=== PATIENT | female | born 1965 | race Caucasian/White ===

== ENCOUNTER 2017-04-22 15:57 | Inpatient (IN) | payer OTHER ==
[2017-04-22] VITALS (7 sets, daily range): BP systolic 121–158; BP diastolic 70–90; PULSE 65–83; RESP 16–20; TEMP 97.5–98.1; O2SAT 97–100
[~2017-04-22] VITALS: Ht 162.6 cm; Wt 82.0 kg
[~2017-04-22 15:57] MED LIST: ALBU1AER INH; BENZ100 PO; ERYT1O LEFT EYE; PRED20 PO; SYMB80AE INH; ZITH250T PO
[2017-04-22 16:30] LABS: BASOPHIL % 0.4 % (0.0-2.0); EOSINOPHIL # 0.3 TH/MM3 (0-0.4); EOSINOPHIL % 5.2 % (0.0-4.0); HEMATOCRIT 34.2 % (35.0-46.0); HEMO FLAGS DIFF FINAL; LYMPH % 23.5 % (9.0-44.0); LYMPHOCYTE # 1.4 TH/MM3 (1.0-4.8); MEAN CELL VOLUME 78.8 FL (80.0-100.0); MEAN CORPUSCULAR HEMOGLOBIN 26.6 PG (27.0-34.0); MEAN CORPUSCULAR HGB CONC 33.7 % (32.0-36.0); MONO % 5.9 % (0.0-8.0); PLATELET COUNT 205 TH/MM3 (150-450); RED BLOOD COUNT 4.34 MIL/MM3 (4.00-5.30); RED CELL DISTRIBUTION WIDTH 14.4 % (11.6-17.2); WHITE BLOOD COUNT 6.1 TH/MM3 (4.0-11.0)
[2017-04-22] MEDS ORDERED: MECL-62 PO (16:31)
[2017-04-22] MEDS ORDERED: PROM25TA10 PO (16:31)
[2017-04-22] MEDS ORDERED: ALBUAER3 INH (16:31)
[2017-04-22] MEDS ORDERED: LORA-392 PO (16:31)
[2017-04-22] MEDS ORDERED: LEXA20TA PO (16:31)
[2017-04-22] MEDS: SODIUM CHLOR 0.9% 1000 ML INJ 1,000 ML IV SCH (16:33)
[2017-04-22 16:40] LABS: CHLORIDE 105 MEQ/L (98-107); POTASSIUM 3.1 MEQ/L (3.5-5.1); SODIUM (NA) 141 MEQ/L (136-145)
[2017-04-22 16:44] LABS: ANION GAP 8 MEQ/L (5-15); BLOOD UREA NITROGEN 11 MG/DL (7-18)
[2017-04-22] MEDS ORDERED: LORazepam 2 MG/ML VIAL IV PUSH ONE (16:45)
[2017-04-22 16:46] LABS: APTT (PATIENT) 27.3 SEC (24.3-30.1); PROTHROMBIN TIME - PATIENT 10.7 SEC (9.8-11.6)
[2017-04-22 16:47] LABS: ALT (GPT) 19 U/L (10-53); AST (GOT) 13 U/L (15-37); GLOMERULAR FILTRATION RATE 85 ML/MIN (>89)
[2017-04-22 16:49] LABS: TOTAL BILIRUBIN ADULT 0.2 MG/DL (0.2-1.0)
[2017-04-22 16:50] LABS: ALKALINE PHOSPHATASE 104 U/L (45-117)
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
--- NOTE | 2017-04-22 16:54 | RADRPT ---
EXAM DATE/TIME: 04/22/2017 16:28 [facility] COMPARISON: No previous studies available for comparison. INDICATIONS : Left arm and facial numbness. Evaluate for cerebrovascular accident. RADIATION DOSE: 64.21 CTDIvol (mGy) MEDICAL HISTORY : Seizures. Hypertension. SURGICAL HISTORY : section. ENCOUNTER: Initial ACUITY: 1 day PAIN SCALE: 0/10 LOCATION: cranial TECHNIQUE: Multiple contiguous axial images were obtained of the head. Using automated exposure control and adj ustment of the mA and/or kV according to patient size, radiation dose was kept as low as reasonably a chievable to obtain optimal diagnostic quality images. DICOM format image data is available electro nically for review and comparison. FINDINGS: There is no evidence for intracranial hemorrhage, mass effect, mass lesions, edema, or extra-axial fl uid collections. The visualized bony structures appear intact. The ventricles are normal size for t he patient's age. There are no signs of acute infarction for technique. CONCLUSION: Unremarkable study. Vesta Parekh MD on April 22, 2017 at 16:51 Board Certified Radiologist. This report was verified electronically.
[2017-04-22] MEDS ORDERED: ASPIRIN 325 MG TAB PO ONE (17:30)
--- NOTE | 2017-04-22 17:38 | RADRPT ---
EXAM DATE/TIME: 04/22/2017 17:01 [facility] COMPARISON: CT BRAIN W/O CONTRAST, April 22, 2017, 16:28. INDICATIONS : Left sided weakness. MEDICAL HISTORY : None. SURGICAL HISTORY : section. ENCOUNTER: Initial ACUITY: 1 day PAIN SCORE: 0/10 LOCATION: cranial TECHNIQUE: Multiplanar, multisequence MRI of the brain was performed without contrast. FINDINGS: There is no evidence for intracranial hemorrhage, mass effect, mass lesions, edema, or extra-axial fl uid collections. The ventricles are normal size for the patient's age. There are no signs of acute infarction for technique. The diffusion portion is unremarkable. CONCLUSION: Unremarkable study. Vesta Parekh MD on April 22, 2017 at 17:33 Board Certified Radiologist. This report was verified electronically.
--- NOTE | 2017-04-22 17:41 | RADRPT ---
EXAM DATE/TIME: 04/22/2017 17:01 [facility] COMPARISON: No previous studies available for comparison. INDICATIONS : Left sided weakness. MEDICAL HISTORY : None. SURGICAL HISTORY : section. ENCOUNTER: Initial ACUITY: 1 day PAIN SCORE: 0/10 LOCATION: cranial Please note a normal MRA of the brain does not entirely exclude the possibility of a small aneurysm, nor the possibility of distal intracranial vessel disease. TECHNIQUE: 3D time of flight MRA was performed. Source images, multiplanar STS MIP, and 3D volume MIP reconstru ctions were reviewed. FINDINGS: There is excellent visualization of the major intracranial arteries out to the second-order branch ve ssels. There is no evidence for aneurysm, vessel truncation or stenosis, and no evidence for vascula r malformation. CONCLUSION: Normal examination. Daniel Pearson MD on April 22, 2017 at 17:38 Board Certified Radiologist. This report was verified electronically.
--- NOTE | 2017-04-22 17:42 | RADRPT ---
EXAM DATE/TIME: 04/22/2017 17:01 [facility] COMPARISON: No previous studies available for comparison. INDICATIONS : Left sided weakness. MEDICAL HISTORY : None. SURGICAL HISTORY : section. ENCOUNTER: Initial ACUITY: 1 day PAIN SCORE: 0/10 LOCATION: cranial TECHNIQUE: Multiplanar, multisequence MRI examination of the cervical spine was performed. FINDINGS: The marrow signal appears intact, and the spinal cord appears intact with technique. C2-C3: No appreciable compromise to the thecal sac, exiting nerve roots are seen. The neural forami na are patent bilaterally. No appreciable thecal sac stenosis is seen. C3-C4: No appreciable compromise to the thecal sac, exiting nerve roots are seen. The neural forami na are patent bilaterally. No appreciable thecal sac stenosis is seen. C4-C5: No appreciable compromise to the thecal sac, exiting nerve roots are seen. The neural forami na are patent bilaterally. No appreciable thecal sac stenosis is seen. C5-C6: Slight degenerative changes are seen within the disc space and facets. Small right-sided broad -based disc protrusion is present slightly impinging the exiting C6 anterior ramus. There is no theca l sac stenosis. C6-C7: No appreciable compromise to the thecal sac, exiting nerve roots are seen. The neural foramin a are patent bilaterally. No appreciable thecal sac stenosis is seen. C7-T1: No appreciable compromise to the thecal sac, exiting nerve roots are seen. The neural foramin a are patent bilaterally. No appreciable thecal sac stenosis is seen. CONCLUSION: Slight impingement on the right C6 anterior ramus due to broad-based disc protrusion with out any significant thecal sac stenosis. Vesta Parekh MD on April 22, 2017 at 17:37 Board Certified Radiologist. This report was verified electronically.
--- NOTE | 2017-04-22 17:55 | RADRPT ---
EXAM DATE/TIME: 04/22/2017 17:43 [facility] COMPARISON: CHEST SINGLE AP, June 26, 2016, 12:43. INDICATIONS : Shortness of breath. MEDICAL HISTORY : Asthma SURGICAL HISTORY : section. ENCOUNTER: Initial ACUITY: 1 day PAIN SCORE: 0/10 LOCATION: Bilateral chest FINDINGS: The lungs are clear without infiltrate, nodule, or mass. There is no appreciable pleural effusion fo r technique. Heart and mediastinum are unremarkable. CONCLUSION: No acute cardiopulmonary disease. Vesta Parekh MD on April 22, 2017 at 17:54 Board Certified Radiologist. This report was verified electronically.
[2017-04-22] MEDS ORDERED: GADODIAMIDE PF 287 MG/ML 20 ML VIAL (for RAD MRI) IV ONE (18:07)
[2017-04-22] MEDS ORDERED: POTASSIUM CHLORIDE 20 MEQ CONTROLLED RELEASE TAB PO ONE (18:30)
[2017-04-22 18:40] LABS: BLOOD, URINE NEG (NEG); GLUCOSE,URINE NEG (NEG); KETONE, URINE NEG (NEG); NITRITE,URINE NEG (NEG); PH, URINE 6.5 (5.0-8.5)
--- NOTE | 2017-04-22 18:41 | RADRPT ---
EXAM DATE/TIME: 04/22/2017 17:01 [facility] COMPARISON: No previous studies available for comparison. INDICATIONS : Left sided weakness. CONTRAST: 20 cc Omniscan (gadodiamide) IV MEDICAL HISTORY : None. SURGICAL HISTORY : section. ENCOUNTER: Initial ACUITY: 1 day PAIN SCORE: 0/10 LOCATION: cranial Percent stenosis is calculated using the diameter of the stenotic region over the diameter of the nor mal distal internal carotid artery. TECHNIQUE: Bolus infused MRA of the extracranial circulation was performed using a neurovascular coil. Post pro cessing was performed including rotating subvolume maximum intensity projections of each carotid chema ry, rotating full volume maximum intensity projections of both carotid arteries, sagittal and coronal sliding thin slab reformations of each carotid artery, and left oblique sliding thin slab reformatio n through the aortic arch to include the origin of the arch branch vessels. FINDINGS: AORTIC ARCH: There is a three vessel origin of the great vessels from the aorta. No evidence of ostial narrowing. RIGHT CAROTID: The common carotid artery is intact. The carotid bulb has a normal configuration without ulceration or narrowing. The internal carotid artery lumen is smooth without stenosis. The external carotid ar anton is intact. LEFT CAROTID: The common carotid artery is intact. The carotid bulb has a normal configuration without ulceration or narrowing. The internal carotid artery lumen is smooth without stenosis. The external carotid ar anton is intact. VERTEBRALS: The vertebral arteries have a symmetric diameter. No stenotic lesions are seen. CONCLUSION: Normal examination for a patient of this age. Enoch Gallagher MD on April 22, 2017 at 18:37 Board Certified Radiologist. This report was verified electronically.
[2017-04-22 18:43] LABS: URINE COLOR YELLOW (YELLW/STRAW)
[2017-04-22 18:45] LABS: RBC, URINE 0-3 /hpf (0-3); WBC, URINE 0-2 /hpf (0-5)
[2017-04-22 18:46] LABS: COMMENT (UR) CULT NOT INDICATED; CULTURE IF INDICATED CULT NOT INDICATED
[2017-04-22] MEDS ORDERED: SODIUM CHLORIDE 0.9% FLUSH 10 ML FLUSH IV FLUSH PRN (20:15)
[2017-04-22] MEDS ORDERED: NALOXONE HCL 0.4 MG/ML AMP IV PRN (20:15)
[2017-04-22] MEDS ORDERED: ONDANSETRON HCL 4 MG/2 ML VIAL IVP PRN (20:15)
[2017-04-22] MEDS: HEPARIN SODIUM - SQ 10,000 UNITS/ML VIAL SQ SCH (21:09)
[2017-04-22] MEDS: SODIUM CHLORIDE 0.9% FLUSH 10 ML FLUSH IV FLUSH SCH (21:09)
[2017-04-22] MEDS: D5-1/2 NS + KCL 20 MEQ INJ 1,000 ML IV SCH (21:10)
[2017-04-23 04:00] VITALS: BP 110/69; PULSE 63; RESP 20; TEMP 96.3; O2SAT 98
[2017-04-23] MEDS: D5-1/2 NS + KCL 20 MEQ INJ 1,000 ML IV SCH (06:10)
[2017-04-23] MEDS: SODIUM CHLOR 0.9% 1000 ML INJ 1,000 ML IV SCH (06:12)
[2017-04-23 07:46] LABS: POTASSIUM 3.8 MEQ/L (3.5-5.1)
[2017-04-23 07:48] LABS: AUTOMATED NEUTROPHIL # 2.2 TH/MM3 (1.8-7.7); BASOPHIL % 0.6 % (0.0-2.0); EOSINOPHIL # 0.3 TH/MM3 (0-0.4); EOSINOPHIL % 8.4 % (0.0-4.0); HEMATOCRIT 36.2 % (35.0-46.0); HEMO FLAGS DIFF FINAL; LYMPH % 28.7 % (9.0-44.0); LYMPHOCYTE # 1.2 TH/MM3 (1.0-4.8); MEAN CELL VOLUME 81.4 FL (80.0-100.0); MEAN CORPUSCULAR HEMOGLOBIN 27.2 PG (27.0-34.0); MEAN CORPUSCULAR HGB CONC 33.5 % (32.0-36.0); MONO % 6.3 % (0.0-8.0); PLATELET COUNT 177 TH/MM3 (150-450); RED BLOOD COUNT 4.45 MIL/MM3 (4.00-5.30); RED CELL DISTRIBUTION WIDTH 14.9 % (11.6-17.2)
[2017-04-23 07:49] LABS: BICARBONATE 28.3 MEQ/L (21.0-32.0)
[2017-04-23 08:00] VITALS: BP 144/90; PULSE 64; RESP 18; TEMP 97; O2SAT 99
[2017-04-23] MEDS: HEPARIN SODIUM - SQ 10,000 UNITS/ML VIAL SQ SCH (08:48)
[2017-04-23] MEDS: SODIUM CHLORIDE 0.9% FLUSH 10 ML FLUSH IV FLUSH SCH (08:50)
[2017-04-23] MEDS ORDERED: ALBUTEROL SULFATE 90 MCG/ACT HFA 8 GM INHALER INH PRN (10:30)
[2017-04-23] MEDS ORDERED: MECLIZINE HCL 25 MG TAB PO PRN (10:30)
[2017-04-23] MEDS ORDERED: LORazepam 0.5 MG TAB PO PRN (10:30)
[2017-04-23] MEDS ORDERED: PROMETHAZINE HCL 25 MG TAB PO PRN (10:30)
[2017-04-23] MEDS ORDERED: PANTOPRAZOLE SOD 40 MG DELAYED RELEASE TAB PO SCH (11:00)
[2017-04-23] MEDS ORDERED: ALBUTEROL SULFATE 90 MCG/ACT HFA 18 GM INHALER INH PRN (11:00)
[2017-04-23] MEDS ORDERED: ESCITALOPRAM OXALATE 20 MG TAB PO SCH (11:00)
--- NOTE | 2017-04-23 16:44 | EKG ---
Date Performed: 04/22/2017 Time Performed: 16:03:33 PTAGE: 52 years EKG: Sinus rhythm NORMAL ECG INTERPRETATION BASED ON A DEFAULT AGE OF 41 YEARS NO PREVIOUS TRACING DOCTOR: Jose Estrella Interpretating Date/Time 04/23/2017 16:43:48
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
== END 2017-04-23 14:40 | disposition home or self-care (01) | DRG 69 ==
LOC: PHED 15:57 → PHEDA 20:07 → PH3A 21:36
PROVIDERS: ADMIT Family Medicine; ATTEND Family Medicine
DX: G45.9 Transient cerebral ischemic attack, unspecified (principal); M50.223 Other cervical disc displacement at C6-C7 level; E87.6 Hypokalemia; J45.909 Unspecified asthma, uncomplicated; Z82.3 Family history of stroke; Z82.49 Family history of ischemic heart disease and other diseases of the circulatory system; M19.90 Unspecified osteoarthritis, unspecified site
CPT/HCPCS: 70450; 70544; 70548; 70551; 71010; 72141; 80048; 80053; 81001; 84443; 85025; 85610; 85730; 93005; A9579; J1644; J2060; J3480; J7030

== ENCOUNTER 2017-09-17 08:08 | Emergency (ER) | payer OTHER ==
[~2017-09-17] VITALS: Ht 160 cm; Wt 86.0 kg
[~2017-09-17 08:08] MED LIST changes: -ALBU1AER INH; +ALBUAER3 INH; -BENZ100 PO; -ERYT1O LEFT EYE; +LEXA20TA PO; +LORA-392 PO; +MECL-62 PO; -PRED20 PO; +PROM25TA10 PO; -SYMB80AE INH; -ZITH250T PO
[2017-09-17 08:13] VITALS: BP 133/74; PULSE 88; RESP 16; TEMP 98.8; O2SAT 96
[2017-09-17] MEDS ORDERED: SYMB80AE INH (08:23)
[2017-09-17] MEDS ORDERED: CLINDAMYCIN INJ 900 MG in SODIUM CHLORIDE 0.9% INJ 100 ML IV ONE (08:30)
[2017-09-17] MEDS ORDERED: CLIN150C14 PO (08:32)
--- NOTE | 2017-09-17 08:32 | PD ---
HPI Chief Complaint: Skin Problem Time Seen by Provider: 08:25 Travel History International Travel<30 days: No Contact w/Intl Traveler<30days: No Traveled to known affect area: No History of Present Illness HPI Patient presents for right cheek abscess. States she first noticed a small abscess yesterday and was attempting warm compresses. When she awoke this morning it was significantly more swollen and red. No airway compromise. PFSH Past Medical History Hx Anticoagulant Therapy: No Arthritis: Yes Asthma: Yes Blood Disorders: No Anxiety: Yes Depression: Yes Cancer: No (pre cancer on nose. 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) Neurologic: Yes (VERTIGO) Psychiatric: Yes Reproductive: No Respiratory: Yes (ASTHMA) Immunizations Current: Yes Radiation Therapy: No Seizures: Yes Thyroid Disease: Yes (clay's) ?: Not LMP: irregular-premenopausal Past Surgical History Section: Yes Social History Alcohol Use: No Tobacco Use: No Substance Use: No Allergies-Medications (Allergen,Severity, Reaction): Coded Allergies: No Known Allergies (Unverified Adverse Reaction, Unknown, 09/17/17) Reported Meds & Prescriptions Reported Meds & Active Scripts Active Clindamycin (Clindamycin HCl) 150 Mg Cap 300 Mg PO TID 10 Days Reported Symbicort Inh (Budesonide/Formoterol Fumarate) 80-4.5 Mcg/Act Aero Unknown Dose INH Q12HR Phenergan (Promethazine HCl) 25 Mg Tablet 25 Mg PO Q6H PRN Ativan (Lorazepam) 0.5 Mg Tab 1 Mg PO DAILY PRN Proair Hfa 8.5 GM Inh (Albuterol Sulfate) 90 Mcg/Act Aer 2 Puff INH Q6H PRN 108 mcg/actuation Meclizine (Meclizine HCl) 25 Mg Tab 25 Mg PO DIRECTED PRN Review of Systems General / Constitutional: No: Fever Eyes: No: Visual changes HENT: No: Headaches Cardiovascular: No: Chest Pain or Discomfort Respiratory: No: Shortness of Breath Gastrointestinal: No: Abdominal Pain Genitourinary: No: Dysuria Musculoskeletal: No: Pain Skin: Positive Other (right cheek abscess), No Rash Neurologic: No: Weakness Psychiatric: No: Depression Endocrine: No: Polydipsia Hematologic/Lymphatic: No: Easy Bruising Physical Exam Narrative GENERAL: Well-nourished, well-developed patient. SKIN: Focused skin assessment warm/dry. HEAD: Normocephalic. Examination of the right cheek reveals a palpable 3 similar abscess nonfluctuant mild drainage with edema and redness reaching up into the periorbital region EYES: No scleral icterus. No injection or drainage. NECK: Supple, trachea midline. No JVD or lymphadenopathy. CARDIOVASCULAR: Regular rate and rhythm without murmurs, gallops, or rubs. RESPIRATORY: Breath sounds equal bilaterally. No accessory muscle use. GASTROINTESTINAL: Abdomen soft, non-tender, nondistended. MUSCULOSKELETAL: No cyanosis, or edema. BACK: Nontender without obvious deformity. No CVA tenderness. Data Data Last Documented VS Vital Signs Date Time Temp Pulse Resp B/P (MAP) Pulse Ox O2 Delivery O2 Flow Rate FiO2 09/17/17 08:13 98.8 88 16 133/74 (93) 96 Orders Orders Wound Culture And Gram Stain (09/17/17 08:25) Iv Access Insert/Monitor (09/17/17 08:25) Clindamycin Inj (Cleocin Inj) (09/17/17 08:30) MDM Medical Decision Making Medical Screen Exam Complete: Yes Emergency Medical Condition: Yes Differential Diagnosis Abscess, cellulitis, dentalgia Narrative Course Assessment and plan discussed with patient at bedside. She received clindamycin IV. Wound culture taken. Diagnosis Primary Impression: Abscess Patient Instructions: General Instructions Additional Instructions: Encouraged antibacterial soap and water 2 times per day with warm compress. Antibiotics as prescribed. Follow-up with PCP to assess progress. Return to emergency room with any onset of new symptoms. Med/Other Pt SpecificInfo: Prescription(s) given Scripts Clindamycin (Clindamycin) 150 Mg Cap 300 MG PO TID for Infection for 10 Days, #60 CAP 0 Refills Prov: Conrad Lovett MD 09/17/17 Disposition: 01 DISCHARGE HOME Condition: Good Conrad Lovett MD Sep 17, 2017 08:32
== END 2017-09-17 09:36 | disposition home or self-care (01) ==
LOC: PHED 08:08
DX: L02.01 Cutaneous abscess of face (principal); M19.90 Unspecified osteoarthritis, unspecified site; J45.909 Unspecified asthma, uncomplicated; I10 Essential (primary) hypertension; I73.00 Raynaud's syndrome without gangrene; R56.9 Unspecified convulsions; E06.3 Autoimmune thyroiditis; F41.9 Anxiety disorder, unspecified; F32.9 Major depressive disorder, single episode, unspecified
CPT/HCPCS: 86403; 87070; 87186; 96365

== ENCOUNTER 2017-09-19 11:53 | Inpatient (IN) | payer OTHER ==
[~2017-09-19] VITALS: Ht 160 cm; Wt 88.8 kg
[~2017-09-19 11:53] MED LIST changes: +CLIN150C14 PO; -LEXA20TA PO; +SYMB80AE INH
[2017-09-19 11:59] VITALS: BP 156/85; PULSE 77; RESP 20; TEMP 98.3; O2SAT 97
--- NOTE | 2017-09-19 12:27 | PD ---
HPI Chief Complaint: Skin Problem Time Seen by Provider: 12:04 Travel History International Travel<30 days: No Contact w/Intl Traveler<30days: No Traveled to known affect area: No History of Present Illness HPI 52-year-old female here for evaluation of worsening right facial cellulitis. The patient reports that her symptoms started or days ago with a pimple on her right cheek which she squeezed. She was seen in the emergency department on and was found to have a draining abscess which was cultured and grew out MRSA. She was discharged home with clindamycin at that time. Culture and sensitivity showed sensitivity to clindamycin. She reports that her symptoms seem to be worsening. Pain is moderate to severe, described as pressure/sharp, constant, worse with palpation. She denies fevers or chills. She reports slight blurry vision in her right eye. No respiratory difficulties or difficulty swallowing. Denies history of IVDU. 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) Neurologic: Yes (VERTIGO) Psychiatric: Yes Reproductive: No Respiratory: Yes (ASTHMA) Immunizations Current: Yes Radiation Therapy: No Seizures: Yes Thyroid Disease: Yes (clay's) Influenza Vaccination: No ?: Not Past Surgical History Section: Yes Other Surgery: Yes (c section) Social History Alcohol Use: No Tobacco Use: No Substance Use: No Allergies-Medications (Allergen,Severity, Reaction): Coded Allergies: No Known Allergies (Unverified Adverse Reaction, Unknown, 09/19/17) Reported Meds & Prescriptions Reported Meds & Active Scripts Active Clindamycin (Clindamycin HCl) 150 Mg Cap 300 Mg PO TID 10 Days Reported Symbicort Inh (Budesonide/Formoterol Fumarate) 80-4.5 Mcg/Act Aero Unknown Dose INH Q12HR Phenergan (Promethazine HCl) 25 Mg Tablet 25 Mg PO Q6H PRN Ativan (Lorazepam) 0.5 Mg Tab 1 Mg PO DAILY PRN Proair Hfa 8.5 GM Inh (Albuterol Sulfate) 90 Mcg/Act Aer 2 Puff INH Q6H PRN 108 mcg/actuation Meclizine (Meclizine HCl) 25 Mg Tab 25 Mg PO DIRECTED PRN Review of Systems Except as stated in HPI: all other systems reviewed are Neg Physical Exam Narrative GENERAL: Well-developed, well-nourished, comfortable, no apparent distress. SKIN: Right cheek with diffuse erythema with about 4 mm circular lesion at the center with slight drainage of pus. This entire area is indurated with preseptal extension around the right eye. No fluctuance. There is no proptosis. HEAD: Atraumatic. Normocephalic. Skin exam as above. No sublingual or submental erythema or induration. EYES: Skin exam as above. Pupils equal, round, 4 mm, reactive to light. EOMI. No proptosis. ENT: No nasal bleeding or discharge. Mucous membranes pink and moist. No intraoral lesions. No drooling or stridor. NECK: Trachea midline. No JVD. CARDIOVASCULAR: Regular rate and rhythm. RESPIRATORY: No accessory muscle use. Clear to auscultation. Breath sounds equal bilaterally. GASTROINTESTINAL: Abdomen soft, non-tender, nondistended. MUSCULOSKELETAL: No obvious deformities. No clubbing. No cyanosis. No edema. NEUROLOGICAL: Awake and alert. No obvious cranial nerve deficits. Motor grossly within normal limits. Normal speech. PSYCHIATRIC: Appropriate mood and affect; insight and judgment normal. Data Data Last Documented VS Vital Signs Date Time Temp Pulse Resp B/P (MAP) Pulse Ox O2 Delivery O2 Flow Rate FiO2 09/19/17 14:20 65 16 138/69 (92) 98 09/19/17 11:59 98.3 Orders Orders Complete Blood Count With Diff (09/19/17 12:18) Comprehensive Metabolic Panel (09/19/17 12:18) Prothrombin Time / Inr (Pt) (09/19/17 12:18) Act Partial Throm Time (Ptt) (09/19/17 12:18) Lactic Acid Sepsis Protocol (09/19/17 12:18) Blood Culture (09/19/17 12:18) Ecg Monitoring (09/19/17 12:18) Iv Access Insert/Monitor (09/19/17 12:18) Oximetry (09/19/17 12:18) Vancomycin Inj (Vancomycin Inj) (09/19/17 12:30) Ct Facial Bones W Iv Contrast (09/19/17 ) Iohexol 350 Inj (Omnipaque 350 Inj) (09/19/17 14:03) Ketorolac Inj (Toradol Inj) (09/19/17 14:15) Admit To Inpatient (09/19/17 ) Vital Signs (Adult) Q4H (09/19/17 14:27) Activity Oob Ad Missy (09/19/17 14:27) Diet Regular Basic (09/19/17 Dinner) Sodium Chloride 0.9% Flush (Ns Flush) (09/19/17 21:00) Sodium Chloride 0.9% Flush (Ns Flush) (09/19/17 14:30) Pharmacy Consult Vancomycin (09/19/17 14:30) Acetaminophen (Tylenol) (09/19/17 14:30) Acetamin-Hydrocod 325-5 Mg ([place] 5-325 (09/19/17 14:30) Acetamin-Hydrocod 325-7.5 Mg ([place] 7.5 (09/19/17 14:30) Ketorolac Inj (Toradol Inj) (09/19/17 14:30) Basic Metabolic Panel (Bmp) (09/20/17 06:00) Complete Blood Count With Diff (09/20/17 06:00) Scd Bilateral/Knee High DAVE.BID (09/19/17 14:27) [place] Bilateral/Knee High DAVE.QSHIFT (09/19/17 14:27) Inpatient Certification (09/19/17 ) Labs Laboratory Tests Test 09/19/17 12:25 White Blood Count 6.5 TH/MM3 Red Blood Count 4.14 MIL/MM3 Hemoglobin 11.5 GM/DL Hematocrit 34.4 % Mean Corpuscular Volume 83.1 FL Mean Corpuscular Hemoglobin 27.8 PG Mean Corpuscular Hemoglobin Concent 33.5 % Red Cell Distribution Width 13.3 % Platelet Count 162 TH/MM3 Mean Platelet Volume 7.2 FL Neutrophils (%) (Auto) 73.4 % Lymphocytes (%) (Auto) 15.6 % Monocytes (%) (Auto) 6.2 % Eosinophils (%) (Auto) 4.4 % Basophils (%) (Auto) 0.4 % Neutrophils # (Auto) 4.8 TH/MM3 Lymphocytes # (Auto) 1.0 TH/MM3 Monocytes # (Auto) 0.4 TH/MM3 Eosinophils # (Auto) 0.3 TH/MM3 Basophils # (Auto) 0.0 TH/MM3 CBC Comment DIFF FINAL Differential Comment Prothrombin Time 10.4 SEC Prothromb Time International Ratio 1.0 RATIO Activated Partial Thromboplast Time 27.4 SEC Blood Urea Nitrogen 12 MG/DL Creatinine 0.88 MG/DL Random Glucose 86 MG/DL Total Protein 7.0 GM/DL Albumin 3.2 GM/DL Calcium Level 8.2 MG/DL Alkaline Phosphatase 98 U/L Aspartate Amino Transf (AST/SGOT) 8 U/L Alanine Aminotransferase (ALT/SGPT) 14 U/L Total Bilirubin 0.4 MG/DL Sodium Level 143 MEQ/L Potassium Level 3.4 MEQ/L Chloride Level 107 MEQ/L Carbon Dioxide Level 29.7 MEQ/L Anion Gap 6 MEQ/L Estimat Glomerular Filtration Rate 68 ML/MIN Lactic Acid Level 0.6 mmol/L [facility] Medical Decision Making Medical Screen Exam Complete: Yes Emergency Medical Condition: Yes Medical Record Reviewed: Yes Differential Diagnosis Cellulitis, abscess, erysipelas, cavernous sinus thrombosis unlikely based on clinical exam findings, preseptal cellulitis, orbital cellulitis unlikely, failure of outpatient therapy Narrative Course Vital signs are within normal limits. CBC: WBC 6.5, hemoglobin 11.5, hematocrit 34.4, platelets 162, neutrophils 73%. CMP is essentially unremarkable. Lactic acid is 0.6. CT facial bones with IV contrast: CONCLUSION: Facial cellulitis of over the right maxillary sinus without abscess. This extends from the inferior eyelid to the maxilla. Etiology for this is not apparent. Patient was made aware of all findings. She is given a dose of IV vancomycin as her culture grew out MRSA from 2 days ago that was sensitive to vancomycin. Culture was also sensitive to clindamycin, however the patient reports that her symptoms have been worsening. Because of her failed outpatient therapy, she will be admitted for further antiemetic therapy. There are no signs or symptoms to suggest cavernous sinus thrombosis at this time. Case discussed with hospitalist DEVIN Price and the patient will be admitted to their service under Dr. Calderon. Diagnosis Primary Impression: Facial cellulitis Additional Impression: failed outpatient therapy Admitting Information Admitting Physician Requests: Admit William Gerardo MD Sep 19, 2017 12:27
[2017-09-19] MEDS ORDERED: VANCOMYCIN INJ 1,000 MG in SODIUM CHLOR 0.9% 250 ML INJ 250 ML IV ONE (12:30)
[2017-09-19 12:35] LABS: AUTOMATED NEUTROPHIL # 4.8 TH/MM3 (1.8-7.7); BASOPHIL % 0.4 % (0.0-2.0); EOSINOPHIL # 0.3 TH/MM3 (0-0.4); EOSINOPHIL % 4.4 % (0.0-4.0); HEMATOCRIT 34.4 % (35.0-46.0); HEMOGLOBIN 11.5 GM/DL (11.6-15.3); LYMPH % 15.6 % (9.0-44.0); MEAN CELL VOLUME 83.1 FL (80.0-100.0); MEAN CORPUSCULAR HEMOGLOBIN 27.8 PG (27.0-34.0); MEAN CORPUSCULAR HGB CONC 33.5 % (32.0-36.0); MEAN PLATELET VOLUME 7.2 FL (7.0-11.0); MONO % 6.2 % (0.0-8.0); MONOCYTE # 0.4 TH/MM3 (0-0.9); NEUT % 73.4 % (16.0-70.0); PLATELET COUNT 162 TH/MM3 (150-450); RED BLOOD COUNT 4.14 MIL/MM3 (4.00-5.30); RED CELL DISTRIBUTION WIDTH 13.3 % (11.6-17.2); WHITE BLOOD COUNT 6.5 TH/MM3 (4.0-11.0)
[2017-09-19 12:45] VITALS: O2SAT 98
[2017-09-19 12:45] LABS: CHLORIDE 107 MEQ/L (98-107); SODIUM (NA) 143 MEQ/L (136-145)
[2017-09-19 12:49] LABS: PROTHROMBIN TIME - PATIENT 10.4 SEC (9.8-11.6)
[2017-09-19 12:50] LABS: ALBUMIN 3.2 GM/DL (3.4-5.0); BICARBONATE 29.7 MEQ/L (21.0-32.0); CALCIUM 8.2 MG/DL (8.5-10.1)
[2017-09-19 12:51] LABS: BLOOD UREA NITROGEN 12 MG/DL (7-18); GLUCOSE,RANDOM 86 MG/DL (74-106)
[2017-09-19 12:54] LABS: ALT (GPT) 14 U/L (10-53); AST (GOT) 8 U/L (15-37); CREATININE 0.88 MG/DL (0.50-1.00); GLOMERULAR FILTRATION RATE 68 ML/MIN (>89)
[2017-09-19 12:55] LABS: TOTAL BILIRUBIN ADULT 0.4 MG/DL (0.2-1.0)
[2017-09-19 12:57] LABS: ALKALINE PHOSPHATASE 98 U/L (45-117)
[2017-09-19] MEDS ORDERED: IOHEXOL 350 MG/ML 10 ML VIAL (for RAD DIAG) IVCONTRAST ONE (14:03)
[2017-09-19] MEDS ORDERED: KETOROLAC TROMETHAMINE 30 MG/ML (IVP) VIAL IV PUSH ONE (14:15)
[2017-09-19 14:20] VITALS: BP 138/69; PULSE 65; RESP 16; O2SAT 98
--- NOTE | 2017-09-19 14:25 | RADRPT ---
EXAM DATE/TIME: 09/19/2017 13:55 [facility] COMPARISON: No previous studies available for comparison. INDICATIONS : Evaluate worsening right facial cellulitis. No improvement after taking antibiotics. IV CONTRAST: 75 cc Omnipaque 350 (iohexol) IV RADIATION DOSE: 29.85 CTDIvol (mGy) MEDICAL HISTORY : Hypertension. Hypothyroidism. SURGICAL HISTORY : section. ENCOUNTER: Initial ACUITY: 4 - 6 days PAIN SCALE: 3/10 LOCATION: Right facial TECHNIQUE: Volumetric scanning of the facial bones was performed. Using automated exposure control and adjustme nt of the mA and/or kV according to patient size, radiation dose was kept as low as reasonably achiev able to obtain optimal diagnostic quality images. DICOM format image data is available electronicall y for review and comparison. FINDINGS: There is cellulitis over the right face beginning just below the orbit without an abscess. The maxil dsetiney sinuses are clear. The ethmoid sinuses are clear. The orbital contents are unremarkable The nasopharynx and oropharynx appear normal. Base of tongue is unremarkable There is no adenopathy. CONCLUSION: Facial cellulitis of over the right maxillary sinus without abscess. This extends from the inferior eyelid to the maxilla. Etiology for this is not apparent. Zion Quiroga MD FACR on September 19, 2017 at 14:20 Board Certified Radiologist. This report was verified electronically.
[2017-09-19] MEDS ORDERED: TEMAZEPAM 15 MG CAP PO PRN (14:30)
[2017-09-19] MEDS ORDERED: ACETAMINOPHEN/HYDROcodone 325 MG/5 MG TAB PO PRN (14:30)
[2017-09-19] MEDS ORDERED: SODIUM CHLORIDE 0.9% FLUSH 10 ML FLUSH IV FLUSH PRN (14:30)
[2017-09-19] MEDS ORDERED: DOCUSATE SODIUM 100 MG CAP PO PRN (14:30)
[2017-09-19] MEDS ORDERED: ONDANSETRON HCL 4 MG/2 ML VIAL IV PUSH PRN (14:30)
[2017-09-19] MEDS ORDERED: Vancomycin Consult Pharmacy 1 EA OTHER SCH (14:30)
[2017-09-19] MEDS ORDERED: ACETAMINOPHEN 500 MG CPLT PO PRN (14:30)
[2017-09-19] MEDS ORDERED: MAGNESIUM HYDROXIDE SUSP 30 ML CUP PO PRN (14:30)
[2017-09-19] MEDS ORDERED: CALCIUM CARBONATE 500 MG CHEWABLE TAB CHEW PRN (14:30)
[2017-09-19] MEDS ORDERED: KETOROLAC TROMETHAMINE 30 MG/ML (IVP) VIAL IVP PRN (14:30)
--- NOTE | 2017-09-19 14:54 | HHI.HP ---
HPI Service [facility] Primary Care Physician Michael Rodrigues M.D. Admission Diagnosis Left Facial Cellulitis with Failed Outpatient Treatment Diagnoses: (1) Facial cellulitis Diagnosis: Principal Chief Complaint: Cellulitis is not improving Travel History International Travel<30 Days: No Contact w/Intl Traveler <30 Da: No Traveled to Known Affected Are: No History of Present Illness 52-year-old female with known history of asthma, vertigo who presented to the hospital because of worsening of right facial cellulitis. Patient indicates that her symptoms started last Tuesday which was 5 days ago. She was having vertigo testing performed and the mask was rubbing on her cheek causing the irritation. It progressively got worse and then when she woke up Tuesday morning she had a rather large knot underneath the skin so she came to the ER for evaluation. Patient had workup done and was started on clindamycin. The patient took medication as prescribed, however is not improved so she returned to the hospital for evaluation. The patient denies any fever, chills. There is mild drainage noted from her right cheek. Patient has CT scan done in emergency department which did not indicate any abscess or orbital cellulitis. Ultrasound was done at bedside by ER physician and no fluid collection was noted. It was recommended by the ER physician the patient be admitted for facial cellulitis failing outpatient treatment. Review of Systems Integumentary: COMPLAINS OF: Abnormal pigmentation Except as stated in HPI: all other systems reviewed are Neg Past Family Social History Past Medical History Vertigo Asthma Past Surgical History Reported Medications Reported Meds & Active Scripts Active Clindamycin (Clindamycin HCl) 150 Mg Cap 300 Mg PO TID 10 Days Reported Symbicort Inh (Budesonide/Formoterol Fumarate) 80-4.5 Mcg/Act Aero Unknown Dose INH Q12HR Phenergan (Promethazine HCl) 25 Mg Tablet 25 Mg PO Q6H PRN Ativan (Lorazepam) 0.5 Mg Tab 1 Mg PO DAILY PRN Proair Hfa 8.5 GM Inh (Albuterol Sulfate) 90 Mcg/Act Aer 2 Puff INH Q6H PRN 108 mcg/actuation Meclizine (Meclizine HCl) 25 Mg Tab 25 Mg PO DIRECTED PRN Allergies: Coded Allergies: No Known Allergies (Unverified Adverse Reaction, Unknown, 09/19/17) Family History Reviewed is significant for stroke on mother's side of the family, cancer on father's side of the family Social History Patient states that she smoked a little when she was a teenager. Drinks, rarely. Denies any illicit drugs Physical Exam Vital Signs Vital Signs Date Time Temp Pulse Resp B/P (MAP) Pulse Ox O2 Delivery O2 Flow Rate FiO2 09/19/17 14:20 65 16 138/69 (92) 98 09/19/17 12:45 98 09/19/17 11:59 98.3 77 20 156/85 (108) 97 Physical Exam GENERAL: Well-developed, well-nourished, in no acute distress. alert and orientated HEENT: Head is normocephalic without any lesions or masses noted. Patient has obvious edema and cellulitis of the right cheek. There is a 3 mm white center noted in the center of the cellulitis. The cellulitis extends from the lower eyelid down to the corner of the mouth. Eyes: Pupils equal round reactive to light. Extraocular muscles are intact. Conjunctivae were clear. Oropharyngeal: Pharynx without any erythema edema. Tongue is midline without deviation. Buccal mucosa is moist without any masses or lesions NECK: Supple without any masses. Trachea midline no deviation. No JVD, no bruits are appreciated CARDIAC: Regular rhythm, regular rate. S1/S2 are heard. No murmurs gallops or rubs. LUNGS: Clear to auscultation bilaterally. No wheeze, rhonchi or rales. No use of accessory muscles on inspiration or expiration. ABDOMEN: Soft, nontender. Nondistended. Bowel sounds heard in all 4 quadrants. No organomegaly or masses. Negative rebound, negative guarding EXTREMITIES: No edema, pulses are equal bilaterally. No cyanosis or clubbing NEUROLOGY: Mood and affect appear appropriate. Cranial nerves II through XII grossly intact. Muscle strength 5/5 in upper and lower extremities bilaterally. Deep tendon reflexes are 2+ in upper and lower extremities bilaterally. Laboratory Laboratory Tests Test 09/19/17 12:25 White Blood Count 6.5 Red Blood Count 4.14 Hemoglobin 11.5 Hematocrit 34.4 Mean Corpuscular Volume 83.1 Mean Corpuscular Hemoglobin 27.8 Mean Corpuscular Hemoglobin Concent 33.5 Red Cell Distribution Width 13.3 Platelet Count 162 Mean Platelet Volume 7.2 Neutrophils (%) (Auto) 73.4 Lymphocytes (%) (Auto) 15.6 Monocytes (%) (Auto) 6.2 Eosinophils (%) (Auto) 4.4 Basophils (%) (Auto) 0.4 Neutrophils # (Auto) 4.8 Lymphocytes # (Auto) 1.0 Monocytes # (Auto) 0.4 Eosinophils # (Auto) 0.3 Basophils # (Auto) 0.0 CBC Comment DIFF FINAL Differential Comment Prothrombin Time 10.4 Prothromb Time International Ratio 1.0 Activated Partial Thromboplast Time 27.4 Blood Urea Nitrogen 12 Creatinine 0.88 Random Glucose 86 Total Protein 7.0 Albumin 3.2 Calcium Level 8.2 Alkaline Phosphatase 98 Aspartate Amino Transf (AST/SGOT) 8 Alanine Aminotransferase (ALT/SGPT) 14 Total Bilirubin 0.4 Sodium Level 143 Potassium Level 3.4 Chloride Level 107 Carbon Dioxide Level 29.7 Anion Gap 6 Estimat Glomerular Filtration Rate 68 Lactic Acid Level 0.6 Date/Time Source Procedure Growth Status 09/19/17 12:25 Blood Peripheral Aerobic Blood Culture Pending Received 09/19/17 12:25 Blood Peripheral Anaerobic Blood Culture Pending Received Result Diagram: 09/19/17 1225 09/19/17 1225 Imaging Last Impressions Maxillofacial CT 09/19/17 0000 Signed Impressions: Service Date/Time: Tuesday, September 19, 2017 13:55 - CONCLUSION: Facial cellulitis of over the right maxillary sinus without abscess. This extends from the inferior eyelid to the maxilla. Etiology for this is not apparent. Zion Quiroga MD FACR Caprini VTE Risk Assessment Caprini VTE Risk Assessment: Mod/High Risk (score >= 2) Caprini Risk Assessment Model Point Value = 1 Point Value = 2 Point Value = 3 Point Value = 5 Age 41-60 Minor surgery BMI > 25 kg/m2 Swollen legs Varicose veins or History of unexplained or recurrent spontaneous Oral contraceptives or hormone replacement Sepsis (< 1 month) Serious lung disease, including pneumonia (< 1 month) Abnormal pulmonary function Acute myocardial infarction Congestive heart failure (< 1 month) History of inflammatory bowel disease Medical patient at bed rest Age 61-74 Arthroscopic surgery Major open surgery (> 45 min) Laparoscopic surgery (> 45 min) Malignancy Confined to bed (> 72 hours) Immobilizing plaster cast Central venous access Age >= 75 History of VTE Family history of VTE Factor V Leiden Prothrombin [id number] Lupus anticoagulant Anticardiolipin antibodies Elevated serum homocysteine Heparin-induced thrombocytopenia Other congenital or acquired thrombophilia Stroke (< 1 month) Elective arthroplasty Hip, pelvis, or leg fracture Acute spinal cord injury (< 1 month) Prophylaxis Regimen Total Risk Factor Score Risk Level Prophylaxis Regimen 0-1 Low Early ambulation 2 Moderate Order ONE of the following: *Sequential Compression Device (SCD) *Heparin 5000 units SQ BID 3-4 Higher Order ONE of the following medications: *Heparin 5000 units SQ TID *Enoxaparin/Lovenox 40 mg SQ daily (WT < 150 kg, CrCl > 30 mL/min) *Enoxaparin/Lovenox 30 mg SQ daily (WT < 150 kg, CrCl > 10-29 mL/min) *Enoxaparin/Lovenox 30 mg SQ BID (WT < 150 kg, CrCl > 30 mL/min) AND/OR *Sequential Compression Device (SCD) 5 or more Highest Order ONE of the following medications: *Heparin 5000 units SQ TID (Preferred with Epidurals) *Enoxaparin/Lovenox 40 mg SQ daily (WT < 150 kg, CrCl > 30 mL/min) *Enoxaparin/Lovenox 30 mg SQ daily (WT < 150 kg, CrCl > 10-29 mL/min) *Enoxaparin/Lovenox 30 mg SQ BID (WT < 150 kg, CrCl > 30 mL/min) AND *Sequential Compression Device (SCD) Assessment and Plan Assessment and Plan Right cheek cellulitis, failing outpatient management Patient was on outpatient clindamycin Culture does indicate staph aureus MRSA CT scan does not indicate any abscess formation does indicate cellulitis over the right maxillary extends from inferior eyelid to maxilla Start vancomycin Warm compresses 4 times daily Monitor for improvement Asthma DuoNeb as needed for shortness of breath Vertigo Continue home medications DVT prevention Sequential compression devices Physician Certification 2 Midnight Certification Type: Admission for Inpatient Services Order for Inpatient Services The services are ordered in accordance with Medicare regulations or non- Medicare payer requirements, as applicable. In the case of services not specified as inpatient-only, they are appropriately provided as inpatient services in accordance with the 2-midnight benchmark. Estimated LOS (days): 2 days is the estimated time the patient will need to remain in the hospital, assuming treatment plan goals are met and no additional complications. Post-Hospital Plan: Not yet determined Marco Price Sep 19, 2017 14:53
[2017-09-19] MEDS ORDERED: RESP: ALBUTEROL 2.5 MG/IPRATROPIUM 0.5 MG NEB (PRN) NEB (15:00)
[2017-09-19 16:00] VITALS: BP 132/74; PULSE 57; RESP 18; TEMP 97.7; O2SAT 97
[2017-09-19 20:00] VITALS: BP 134/77; PULSE 73; RESP 20; TEMP 96.6; O2SAT 98
[2017-09-19] MEDS: SODIUM CHLORIDE 0.9% FLUSH 10 ML FLUSH IV FLUSH SCH (22:08)
[2017-09-19] MEDS: ACETAMINOPHEN/HYDROcodone 325 MG/7.5 MG TAB PO PRN (22:10)
[2017-09-20 00:15] VITALS: BP 127/71; PULSE 72; RESP 18; TEMP 96.2; O2SAT 97
[2017-09-20] MEDS: VANCOMYCIN INJ 1,700 MG in SODIUM CHLORID 0.9% 500 ML INJ 500 ML IV SCH (00:30)
[2017-09-20 06:25] LABS: AUTOMATED NEUTROPHIL # 3.7 TH/MM3 (1.8-7.7); BASOPHIL % 0.7 % (0.0-2.0); EOSINOPHIL # 0.4 TH/MM3 (0-0.4); EOSINOPHIL % 7.1 % (0.0-4.0); HEMATOCRIT 35.3 % (35.0-46.0); HEMOGLOBIN 11.4 GM/DL (11.6-15.3); LYMPH % 21.4 % (9.0-44.0); LYMPHOCYTE # 1.2 TH/MM3 (1.0-4.8); MEAN CELL VOLUME 84.3 FL (80.0-100.0); MEAN CORPUSCULAR HEMOGLOBIN 27.1 PG (27.0-34.0); MEAN CORPUSCULAR HGB CONC 32.2 % (32.0-36.0); MONO % 6.2 % (0.0-8.0); MONOCYTE # 0.4 TH/MM3 (0-0.9); NEUT % 64.6 % (16.0-70.0); PLATELET COUNT 181 TH/MM3 (150-450); RED BLOOD COUNT 4.19 MIL/MM3 (4.00-5.30); RED CELL DISTRIBUTION WIDTH 13.5 % (11.6-17.2); WHITE BLOOD COUNT 5.7 TH/MM3 (4.0-11.0)
[2017-09-20 06:45] LABS: BICARBONATE 28.5 MEQ/L (21.0-32.0); CALCIUM 8.3 MG/DL (8.5-10.1)
[2017-09-20 06:49] LABS: CREATININE 0.52 MG/DL (0.50-1.00)
--- NOTE | 2017-09-20 07:57 | HHI.PR ---
Subjective Remarks Pain is better controlled with medications. Swelling and erythema has improved and she doesn't have anymore blurred vision right eye. No fever or chills overnight. No nausea or vomiting or diarrhea or constipation. Tolerates vancomycin. Objective Vitals Vital Signs Date Time Temp Pulse Resp B/P (MAP) Pulse Ox O2 Delivery O2 Flow Rate FiO2 09/20/17 00:15 96.2 72 18 127/71 (89) 97 09/19/17 20:00 96.6 73 20 134/77 (96) 98 09/19/17 16:00 97.7 57 18 132/74 (93) 97 09/19/17 15:20 09/19/17 14:20 65 16 138/69 (92) 98 09/19/17 12:45 98 09/19/17 11:59 98.3 77 20 156/85 (108) 97 I/O 09/19/17 09/19/17 09/19/17 09/20/17 09/20/17 09/20/17 07:00 15:00 23:00 07:00 15:00 23:00 Intake Total 250 ml 500 ml 960 ml Balance 250 ml 500 ml 960 ml Intake Oral 500 ml 960 ml IV Total 250 ml # Voids 1 7 # Bowel Movements 0 Result Diagram: 09/20/17 0610 09/20/17 0610 Imaging Last Impressions Maxillofacial CT 09/19/17 0000 Signed Impressions: Service Date/Time: Tuesday, September 19, 2017 13:55 - CONCLUSION: Facial cellulitis of over the right maxillary sinus without abscess. This extends from the inferior eyelid to the maxilla. Etiology for this is not apparent. Zion Quiroga MD FACR Objective Remarks GENERAL: Well-developed, well-nourished, in no acute distress. alert and orientated SKIN: Right cheek erythema and edema improved. With 2cm x3 cm induration no fluctuation noted, tender to palpation. CARDIAC: Regular rhythm, regular rate. S1/S2 are heard. No murmurs gallops or rubs. LUNGS: Clear to auscultation bilaterally. No wheeze, rhonchi or rales. No use of accessory muscles on inspiration or expiration. ABDOMEN: Soft, nontender. Nondistended. Bowel sounds heard in all 4 quadrants. No organomegaly or masses. Negative rebound, negative guarding EXTREMITIES: No edema, pulses are equal bilaterally. No cyanosis or clubbing NEUROLOGY: Mood and affect appear appropriate. Cranial nerves II through XII grossly intact. Muscle strength 5/5 in upper and lower extremities bilaterally. Deep tendon reflexes are 2+ in upper and lower extremities bilaterally. A/P Problem List: (1) Facial cellulitis ICD Code: L03.211 - Cellulitis of face Status: Acute Assessment and Plan Right cheek cellulitis, failing outpatient management Patient was on outpatient clindamycin Culture does indicate staph aureus MRSA CT scan does not indicate any abscess formation does indicate cellulitis over the right maxillary extends from inferior eyelid to maxilla Continue vancomycin Warm compresses 4 times daily Monitor for improvement Asthma DuoNeb as needed for shortness of breath Vertigo Continue home medications DVT prevention: Sequential compression devices Discussed with the patient, nurse Deyanira Zazueta MD Sep 20, 2017 07:57
[2017-09-20 08:00] VITALS: BP 135/76; PULSE 62; RESP 16; TEMP 98.2; O2SAT 94
[2017-09-20] MEDS ORDERED: POTASSIUM CHLORIDE 10 MEQ CONTROLLED RELEASE TAB PO ONE (10:30)
[2017-09-20] MEDS: SODIUM CHLORIDE 0.9% FLUSH 10 ML FLUSH IV FLUSH SCH ×2 (11:13→21:00)
[2017-09-20 12:00] VITALS: BP 135/91; PULSE 72; RESP 14; TEMP 97.7; O2SAT 95
[2017-09-20] MEDS ORDERED: ALBUTEROL SULFATE 90 MCG/ACT HFA 8 GM INHALER INH PRN (12:45)
[2017-09-20] MEDS ORDERED: MECLIZINE HCL 25 MG TAB PO PRN (12:45)
[2017-09-20 18:00] VITALS: BP 133/64; PULSE 69; RESP 14; TEMP 98; O2SAT 97
[2017-09-20] MEDS: ACETAMINOPHEN/HYDROcodone 325 MG/7.5 MG TAB PO PRN (18:47)
[2017-09-20 20:00] VITALS: BP 139/83; PULSE 74; RESP 20; TEMP 98.3; O2SAT 96
[2017-09-21] VITALS: BP 154/77; PULSE 66; RESP 20; TEMP 97.6; O2SAT 97
[2017-09-21] MEDS: VANCOMYCIN INJ 1,700 MG in SODIUM CHLORID 0.9% 500 ML INJ 500 ML IV SCH (00:41)
[2017-09-21 04:00] VITALS: BP 166/91; PULSE 59; RESP 20; TEMP 96; O2SAT 97
[2017-09-21 06:06] LABS: AUTOMATED NEUTROPHIL # 3.2 TH/MM3 (1.8-7.7); BASOPHIL % 0.7 % (0.0-2.0); EOSINOPHIL # 0.4 TH/MM3 (0-0.4); EOSINOPHIL % 7.9 % (0.0-4.0); HEMATOCRIT 34.3 % (35.0-46.0); HEMOGLOBIN 11.5 GM/DL (11.6-15.3); LYMPH % 24.5 % (9.0-44.0); LYMPHOCYTE # 1.3 TH/MM3 (1.0-4.8); MEAN CELL VOLUME 82.8 FL (80.0-100.0); MEAN CORPUSCULAR HEMOGLOBIN 27.8 PG (27.0-34.0); MEAN CORPUSCULAR HGB CONC 33.6 % (32.0-36.0); MEAN PLATELET VOLUME 6.9 FL (7.0-11.0); MONO % 5.7 % (0.0-8.0); MONOCYTE # 0.3 TH/MM3 (0-0.9); NEUT % 61.2 % (16.0-70.0); PLATELET COUNT 191 TH/MM3 (150-450); RED BLOOD COUNT 4.14 MIL/MM3 (4.00-5.30); RED CELL DISTRIBUTION WIDTH 13.1 % (11.6-17.2); WHITE BLOOD COUNT 5.2 TH/MM3 (4.0-11.0)
[2017-09-21 06:29] LABS: BICARBONATE 30.7 MEQ/L (21.0-32.0); CALCIUM 8.4 MG/DL (8.5-10.1)
[2017-09-21 06:33] LABS: CREATININE 0.55 MG/DL (0.50-1.00)
[2017-09-21] MEDS: ACETAMINOPHEN/HYDROcodone 325 MG/7.5 MG TAB PO PRN (07:26)
[2017-09-21 08:00] VITALS: BP 169/74; PULSE 63; RESP 18; TEMP 97.4; O2SAT 96
[2017-09-21] MEDS: SODIUM CHLORIDE 0.9% FLUSH 10 ML FLUSH IV FLUSH SCH ×2 (09:00→20:40)
[2017-09-21 12:00] VITALS: BP 132/75; PULSE 64; RESP 16; TEMP 97.1; O2SAT 95
[2017-09-21] MEDS: PROMETHAZINE HCL 25 MG TAB PO PRN (12:22)
--- NOTE | 2017-09-21 14:43 | HHI.PR ---
Subjective Remarks Feeling no sheeted and vomited today for times. Not able to keep anything down. No diarrhea patient. No fever or chills. Pain is better controlled. Says there is more discharge from the wound, redness and swelling improved. Objective Vitals Vital Signs Date Time Temp Pulse Resp B/P (MAP) Pulse Ox O2 Delivery O2 Flow Rate FiO2 09/21/17 12:00 97.1 64 16 132/75 (94) 95 09/21/17 08:26 20 09/21/17 08:00 97.4 63 18 169/74 (105) 96 09/21/17 04:00 96.0 59 20 166/91 (116) 97 09/21/17 00:00 97.6 66 20 154/77 (102) 97 09/20/17 20:00 98.3 74 20 139/83 (101) 96 09/20/17 18:00 98.0 69 14 133/64 (87) 97 I/O 09/20/17 09/20/17 09/20/17 09/21/17 09/21/17 09/21/17 07:00 15:00 23:00 07:00 15:00 23:00 Intake Total 960 ml 220 ml 300 ml 480 ml Balance 960 ml 220 ml 300 ml 480 ml Intake Oral 960 ml 220 ml 300 ml 480 ml # Voids 7 1 2 # Bowel Movements 0 0 0 Result Diagram: 09/21/17 0545 09/21/17 0545 Imaging Last Impressions Maxillofacial CT 09/19/17 0000 Signed Impressions: Service Date/Time: Tuesday, September 19, 2017 13:55 - CONCLUSION: Facial cellulitis of over the right maxillary sinus without abscess. This extends from the inferior eyelid to the maxilla. Etiology for this is not apparent. Zion Quiroga MD FACR Objective Remarks GENERAL: Well-developed, well-nourished, in no acute distress. alert and orientated SKIN: Right cheek erythema and edema improved. With 2cm x3 cm induration no fluctuation noted, tender to palpation. CARDIAC: Regular rhythm, regular rate. S1/S2 are heard. No murmurs gallops or rubs. LUNGS: Clear to auscultation bilaterally. No wheeze, rhonchi or rales. No use of accessory muscles on inspiration or expiration. ABDOMEN: Soft, nontender. Nondistended. Bowel sounds heard in all 4 quadrants. No organomegaly or masses. Negative rebound, negative guarding EXTREMITIES: No edema, pulses are equal bilaterally. No cyanosis or clubbing NEUROLOGY: Mood and affect appear appropriate. Cranial nerves II through XII grossly intact. Muscle strength 5/5 in upper and lower extremities bilaterally. Deep tendon reflexes are 2+ in upper and lower extremities bilaterally. A/P Problem List: (1) Facial cellulitis ICD Code: L03.211 - Cellulitis of face Status: Acute Assessment and Plan Right cheek cellulitis, failing outpatient management Patient was on outpatient clindamycin Culture does indicate staph aureus MRSA CT scan does not indicate any abscess formation does indicate cellulitis over the right maxillary extends from inferior eyelid to maxilla Continue vancomycin Warm compresses 4 times daily Monitor for improvement Nausea or vomiting. Antiemetics as need Asthma DuoNeb as needed for shortness of breath Vertigo Continue home medications DVT prevention: Sequential compression devices Discussed with the patient, nurse Discharge Planning Possible discharge tomorrow if improves CosmDeyanira mason MD Sep 21, 2017 14:43
[2017-09-21 16:00] VITALS: BP 135/72; PULSE 70; RESP 18; TEMP 98.1; O2SAT 96
[2017-09-21 20:00] VITALS: BP 131/64; PULSE 72; RESP 18; TEMP 98.6; O2SAT 97
[2017-09-22] VITALS: BP 138/67; PULSE 71; RESP 19; TEMP 98.5; O2SAT 95
[2017-09-22] MEDS: VANCOMYCIN INJ 1,700 MG in SODIUM CHLORID 0.9% 500 ML INJ 500 ML IV SCH (00:15)
[2017-09-22] MEDS: PROMETHAZINE HCL 25 MG TAB PO PRN (00:17)
[2017-09-22 06:39] LABS: AUTOMATED NEUTROPHIL # 3.9 TH/MM3 (1.8-7.7); BASOPHIL % 0.4 % (0.0-2.0); EOSINOPHIL # 0.3 TH/MM3 (0-0.4); HEMATOCRIT 35.7 % (35.0-46.0); LYMPH % 22.7 % (9.0-44.0); LYMPHOCYTE # 1.3 TH/MM3 (1.0-4.8); MEAN CELL VOLUME 82.8 FL (80.0-100.0); MEAN CORPUSCULAR HEMOGLOBIN 27.9 PG (27.0-34.0); MEAN CORPUSCULAR HGB CONC 33.7 % (32.0-36.0); MEAN PLATELET VOLUME 6.6 FL (7.0-11.0); MONOCYTE # 0.4 TH/MM3 (0-0.9); NEUT % 65.9 % (16.0-70.0); PLATELET COUNT 221 TH/MM3 (150-450); RED BLOOD COUNT 4.31 MIL/MM3 (4.00-5.30); RED CELL DISTRIBUTION WIDTH 13.3 % (11.6-17.2); WHITE BLOOD COUNT 5.9 TH/MM3 (4.0-11.0)
[2017-09-22 06:46] LABS: CALCIUM 8.8 MG/DL (8.5-10.1)
[2017-09-22 06:50] LABS: CREATININE 0.66 MG/DL (0.50-1.00)
[2017-09-22 08:00] VITALS: BP 139/63; PULSE 60; RESP 18; TEMP 97.3; O2SAT 96
[2017-09-22] MEDS: SODIUM CHLORIDE 0.9% FLUSH 10 ML FLUSH IV FLUSH SCH (09:00)
--- NOTE | 2017-09-22 11:12 | HHI.DS ---
Discharge Summary Admission Date Sep 19, 2017 at 14:31 Discharge Date: Sep 22, 2017 Admitting Diagnosis Left Facial Cellulitis with Failed Outpatient Treatment (1) Facial cellulitis ICD Code: L03.211 - Cellulitis of face Diagnosis: Principal Status: Acute Procedures I&D facial abscess Brief History - From Admission 52-year-old female with known history of asthma, vertigo who presented to the hospital because of worsening of right facial cellulitis. Patient indicates that her symptoms started last Tuesday which was 5 days ago. She was having vertigo testing performed and the mask was rubbing on her cheek causing the irritation. It progressively got worse and then when she woke up Tuesday morning she had a rather large knot underneath the skin so she came to the ER for evaluation. Patient had workup done and was started on clindamycin. The patient took medication as prescribed, however is not improved so she returned to the hospital for evaluation. The patient denies any fever, chills. There is mild drainage noted from her right cheek. Patient has CT scan done in emergency department which did not indicate any abscess or orbital cellulitis. Ultrasound was done at bedside by ER physician and no fluid collection was noted. It was recommended by the ER physician the patient be admitted for facial cellulitis failing outpatient treatment. CBC/BMP: 09/22/17 0620 09/22/17 0620 Significant Findings Laboratory Tests Test 09/19/17 12:25 09/20/17 06:10 09/21/17 05:45 09/22/17 06:20 Hemoglobin 11.5 GM/DL (11.6-15.3) 11.4 GM/DL (11.6-15.3) 11.5 GM/DL (11.6-15.3) Hematocrit 34.4 % (35.0-46.0) 34.3 % (35.0-46.0) Neutrophils (%) (Auto) 73.4 % (16.0-70.0) Eosinophils (%) (Auto) 4.4 % (0.0-4.0) 7.1 % (0.0-4.0) 7.9 % (0.0-4.0) 5.0 % (0.0-4.0) Albumin 3.2 GM/DL (3.4-5.0) Calcium Level 8.2 MG/DL (8.5-10.1) 8.3 MG/DL (8.5-10.1) 8.4 MG/DL (8.5-10.1) Aspartate Amino Transf (AST/SGOT) 8 U/L (15-37) Potassium Level 3.4 MEQ/L (3.5-5.1) 3.3 MEQ/L (3.5-5.1) Estimat Glomerular Filtration Rate 68 ML/MIN (>89) Mean Platelet Volume 6.9 FL (7.0-11.0) 6.6 FL (7.0-11.0) Imaging Last Impressions Soft Tissue Ultrasound 09/22/17 0000 Signed Impressions: Service Date/Time: August 11:23 - CONCLUSION: Small complex area just underneath the wound opening measuring 1.2 cm. This may be a small soft tissue abscess. There is diffuse edema in the soft tissues. Aj Spears MD Maxillofacial CT 09/19/17 0000 Signed Impressions: Service Date/Time: Tuesday, September 19, 2017 13:55 - CONCLUSION: Facial cellulitis of over the right maxillary sinus without abscess. This extends from the inferior eyelid to the maxilla. Etiology for this is not apparent. Zion Quiroga MD FACR PE at Discharge GENERAL: Well-developed, well-nourished, in no acute distress. alert and orientated SKIN: Right cheek erythema and edema improved. With 2cm x3 cm induration no fluctuation noted, tender to palpation. CARDIAC: Regular rhythm, regular rate. S1/S2 are heard. No murmurs gallops or rubs. LUNGS: Clear to auscultation bilaterally. No wheeze, rhonchi or rales. No use of accessory muscles on inspiration or expiration. ABDOMEN: Soft, nontender. Nondistended. Bowel sounds heard in all 4 quadrants. No organomegaly or masses. Negative rebound, negative guarding EXTREMITIES: No edema, pulses are equal bilaterally. No cyanosis or clubbing NEUROLOGY: Mood and affect appear appropriate. Cranial nerves II through XII grossly intact. Muscle strength 5/5 in upper and lower extremities bilaterally. Deep tendon reflexes are 2+ in upper and lower extremities bilaterally. Pt update on day of discharge Feels much better . no more nausea today able to eat and tolerates food. No pain . Erythema edema improved says she has most of pus out and compresses helps. Not much drainage , induration improved. No fever or chills. No n/v/d/c. Has clindamycin at home to finished course of antibiotic Hospital Course Pleasant 52 yo F with Right cheek cellulitis, failing outpatient management Patient was on outpatient clindamycin Culture does indicate staph aureus MRSA CT scan does not indicate any abscess formation does indicate cellulitis over the right maxillary extends from inferior eyelid to maxilla Continue vancomycin, switch to Clinda as OP as is sensitive Warm compresses 4 times daily Improved discharged home in stable condition to f/u as OP with PCP and consultants Pt Condition on Discharge: Stable Discharge Disposition: Discharge Home Discharge Time: > 30 minutes Discharge Instructions DIET: Follow Instructions for: As Tolerated, No Restrictions Activities you can perform: Regular-No Restrictions Follow up Referrals: PCP Follow-up - 2-3 Days New Medications: Lactobacillus Acidophilus (Lactinex) 1 Chew 1 TAB CHEW TID for Nutritional Supplement, #60 TAB 0 Refills Continued Medications: Albuterol 8.5 GM Inh (Proair Hfa 8.5 GM Inh) 90 Mcg/Act Aer 2 PUFF INH Q6H PRN for SHORTNESS OF BREATH, #1 INHALER 0 Refills 108 mcg/actuation Budesonide-Formoterol Inh (Symbicort Inh) 80-4.5 Mcg/Act Aero Unknown Dose INH Q12HR for Asthma Management, #1 INHALER 0 Refills Clindamycin (Clindamycin) 150 Mg Cap 300 MG PO TID for Infection for 10 Days, #60 CAP 0 Refills Lorazepam (Ativan) 0.5 Mg Tab 1 MG PO DAILY PRN for ANXIETY AND/OR AGITATION, TAB 0 Refills Meclizine (Meclizine) 25 Mg Tab 25 MG PO DIRECTED PRN for VERTIGO, TAB 0 Refills Promethazine (Phenergan) 25 Mg Tablet 25 MG PO Q6H PRN for NAUSEA OR VOMITING, TAB 0 Refills Deyanira Zazueta MD Sep 22, 2017 11:12
[2017-09-22] MEDS ORDERED: LACTCHW3 CHEW (11:14)
[2017-09-22 12:20] VITALS: BP 130/62; PULSE 69; RESP 18; TEMP 97.4; O2SAT 95
[2017-09-22 12:21] VITALS: BP 130/62; PULSE 69; RESP 18; TEMP 97.4; O2SAT 95
--- NOTE | 2017-09-22 12:28 | RADRPT ---
EXAM DATE/TIME: 09/22/2017 11:23 [facility] COMPARISON: CT FACIAL BONES W CONTRAST, September 19, 2017, 13:55. INDICATIONS : Abscess, right facial cheek. MEDICAL HISTORY : Hypertension. Arthritis. Methicillin-resistant Staphylococcus aureus. Seizures. Fredy's disease. pre-cancerous cells, nose. SURGICAL HISTORY : section. ENCOUNTER: Initial ACUITY: 2 weeks PAIN SCORE: 3/10 LOCATION: Right facial cheek. AREA EVALUATED: Right facial cheek. FINDINGS: MASSES: None. FLUID COLLECTIONS: There is a small complex area just underneath the wound opening measuring 1.2 x 0.9 cm. There is arnulfo a throughout the soft tissues.. OTHER: Negative. CONCLUSION: Small complex area just underneath the wound opening measuring 1.2 cm. This may be a small soft tissu e abscess. There is diffuse edema in the soft tissues. Aj Spears MD on September 22, 2017 at 12:25 Board Certified Radiologist. This report was verified electronically.
[2017-09-22] MEDS ORDERED: PHARMACY ORDERED LAB ONE (23:45)
== END 2017-09-22 14:10 | disposition home or self-care (01) | DRG 603 ==
LOC: PHED 11:53 → PHEDA 14:31 → PH3A 15:32
PROVIDERS: ADMIT Hospitalist; ATTEND Hospitalist
DX: L03.211 Cellulitis of face (principal); F32.9 Major depressive disorder, single episode, unspecified; B95.62 Methicillin resistant Staphylococcus aureus infection as the cause of diseases classified elsewhere; J45.909 Unspecified asthma, uncomplicated; R42 Dizziness and giddiness; E06.3 Autoimmune thyroiditis; F41.9 Anxiety disorder, unspecified; M19.90 Unspecified osteoarthritis, unspecified site; R11.2 Nausea with vomiting, unspecified; Z87.891 Personal history of nicotine dependence
CPT/HCPCS: 70487; 76999; 80048; 80053; 83605; 85025; 85610; 85730; 87040; 96365; 96375; J1885; J2405; J3370; J7040; J7050; Q0169; Q9967